=== PATIENT | female | born 1990 | race Caucasian/White ===

== ENCOUNTER 2022-02-10 15:21 | Emergency (ER) | payer SELFPAY ==
--- OUTSIDE RECORDS SUMMARY | 2022-02-10 15:25 | XMS REPORT | Continuity of Care Document ---
:1990 Author Organization [facility] t Address [address] [place] [address] Care Team Providers Name Role Phone MAYNOR LOONEY Attending Clinician Unavailable KNOW, DOES_NOT Admitting Clinician Unavailable Payers Payer Name Policy Type Policy Number Effective Date Expiration Date S ource Problems This patient has no known problems. Allergies, Adverse Reactions, Alerts Allergy Allergy Status Severity Reaction(s) Onset Inactive Treating Comm ents Source Name Type Date Date Clinician [place] DA Active SV [facility] ins 2-28 Clear 00:00: Delong 00 [facility] Penicill DA Active SV ANAPHYLAXIS [facility] ins 2-28 Clear 00:00: Delong [address] [place] [address] Penicill DA Active SV 2013-04 [facility] ins 0-15 Clear 00:00: Delong 00 [facility] Penicill DA Active SV ANAPHYLAXIS 2013-04 [facility] ins 0-15 Clear 00:00: Delong [address] [place] [address] Medications This patient has no known medications. Procedures This patient has no known procedures. Encounters Start End Encounter Admission Attending Care Care Encounter Source Date/Time Date/Time Type Type Clinicians Facility Department ID 2020-08-23 Outpatient [facility] [id number] [place] 03:46:15 [facility] 2019-06-15 Inpatient [facility] [id number] [facility] 17:42:00 01 [facility] Results Test Description Test Time Test Comments Results Result Comments Source DRUGS OF ABUSE SCREEN UR 2019-06-15 19:19:00 Test Item Value Reference Range Interpretation Comme nts URN COCAINE (test code = COCAURN) NEGATIVE NEGATIVE URN CANNABINOIDS (test code = POSITIVE NEGATIVE A CANNABURN) URN AMPHETAMINE (test code = POSITIVE NEGATIVE A AMPHETURN) URN BARBITURATE (test code = NEGATIVE NEGATIVE BARBITURN) URN BENZODIAZEPINE (test code = POSITIVE NEGATIVE A Cut-off value:200 ng/mL BENZOURN) URN OPIATES (test code = NEGATIVE NEGATIVE Cut -off value:2000 ng/mL OPIATURN) URN PHENCYCLIDINE (PCP) (test NEGATIVE NEGATIVE Cutoffs:Barbiturates 200 code = PHENCURN) ng/mLBenzod iazepines 200 ng/mLTHC Cannab inoids 50 ng/mLOpiates(Mo rphine) 2000 ng/mLAmphetamin e 1000 ng/mLCocaine 30 0 ng/mLPCP phencyclidine 2 5 ng/mL Unconfirmed scr eening results shouldnot be us ed for non-medical pur poses. BASIC METABOLIC [id number] 19:13:00 Test Item Value Reference Range Interpretation Comments SODIUM (test code = NA) 139 mEq/L 134-147 N POTASSIUM (test code = 3.1 mEq/L 3.4-5.0 L K) CHLORIDE (test code = 105 mEq/L 100-108 N CL) CARBON DIOXIDE (test 26 mEq/L 21-33 N code = CO2) ANION GAP (test code = 11 0-20 N GAP) GLUCOSE (test code = 93 mg/dL 70-110 N GLU) BLOOD UREA NITROGEN 19 mg/dL 7-18 H (test code = BUN) GLOMERULAR FILTRATION 84.8 110-120 L Units of measure = RATE (test code = GFR) ml/mi n/1.73 m2 CREATININE (test code = 0.8 mg/dL 0.6-1.3 N CREAT) CALCIUM (test code = 9.2 mg/dL 8.0-10.5 N CA) HEPATIC FUNCTION [id number] 19:13:00 Test Item Value Reference Range Interpretation Comments TOTAL PROTEIN (test code = PROT) 7.7 g/dL 6.4-8.2 N ALBUMIN (test code = ALB) 4.70 g/dL 3.4-5.0 N BILIRUBIN TOTAL (test code = BILT) 1.3 MG/DL <1.5 N BILIRUBIN DIRECT (test code = 0.30 MG/DL 0.0-0.30 N BILD) BILIRUBIN INDIRECT (test code = 1.00 MG/DL BILIND) SGOT/AST (test code = AST) 30 IUnit/L 15-37 N SGPT/ALT (test code = ALT) 28 IUnit/L 15-65 N ALKALINE PHOSPHATASE TOTAL (test 46 IUnit/L 20-125 N code = ALKP) HCG SERUM [id number] 19:13:00 Test Item Value Reference Range Interpretation Comments HCG SERUM QUAL (test code = SERUM NEGATIVE NEGATIVE HCGQL) [id number] 19:13:00 Test Item Value Reference Range Interpretation Comments ACETAMINOPHEN (test code = ACET) < 2 ug/mL 10-30 L [id number] 19:13:00 Test Item Value Reference Range Interpretation Comments SALICYLATE (test code = MARICARMEN) < 1.7 mg/dL 2.8-20.0 L [id number] 19:13:00 Test Item Value Reference Range Interpretation Comments ALCOHOL (test code < 0.003 G/dL <0.003 Ethyl Alc ohol = ALC) Interpretation: 0.100 gm/dL - Legally Intoxicated 0.3 00-0.400 gm/dL - Severel y Intoxicated >0. 400 gm/dL - Potenti ally LethalResults a re for Medical purpose s only, and not for Leg al orEmployment ev aluation purposes. BASIC METABOLIC [id number] 19:09:00 Test Item Value Reference Range Interpretation Comments SODIUM (test code = NA) 139 mEq/L 134-147 N POTASSIUM (test code = K) 3.1 mEq/L 3.4-5.0 L CHLORIDE (test code = CL) 105 mEq/L 100-108 N CARBON DIOXIDE (test code = CO2) 26 mEq/L 21-33 N ANION GAP (test code = GAP) 11 0-20 N GLUCOSE (test code = GLU) 93 mg/dL 70-110 N BLOOD UREA NITROGEN (test code = 19 mg/dL 7-18 H BUN) GLOMERULAR FILTRATION RATE (test 110-120 code = GFR) CREATININE (test code = CREAT) mg/dL 0.6-1.3 CALCIUM (test code = CA) 9.2 mg/dL 8.0-10.5 N HEPATIC FUNCTION [id number] 19:09:00 Test Item Value Reference Range Interpretation Comments TOTAL PROTEIN (test code = PROT) g/dL 6.4-8.2 ALBUMIN (test code = ALB) g/dL 3.4-5.0 BILIRUBIN TOTAL (test code = BILT) MG/DL <1.5 BILIRUBIN DIRECT (test code = BILD) MG/DL 0.0-0.30 SGOT/AST (test code = AST) IUnit/L 15-37 SGPT/ALT (test code = ALT) IUnit/L 15-65 ALKALINE PHOSPHATASE TOTAL (test IUnit/L 20-125 code = ALKP) HCG SERUM [id number] 19:09:00 Test Item Value Reference Range Interpretation Comments HCG SERUM QUAL (test code = SERUM NEGATIVE NEGATIVE HCGQL) [id number] 19:09:00 Test Item Value Reference Range Interpretation Comments ACETAMINOPHEN (test code = ACET) ug/mL 10-30 [id number] 19:09:00 Test Item Value Reference Range Interpretation Comments SALICYLATE (test code = MARICARMEN) mg/dL 2.8-20.0 [id number] 19:09:00 Test Item Value Reference Range Interpretation Comments ALCOHOL (test code = ALC) G/dL <0.003 DRUGS OF ABUSE SCREEN [id number] 19:09:00 Test Item Value Reference Range Interpretation Comments URN COCAINE (test code NEGATIVE NEGATIVE = COCAURN) URN CANNABINOIDS (test NEGATIVE code = CANNABURN) URN AMPHETAMINE (test NEGATIVE code = AMPHETURN) URN BARBITURATE (test NEGATIVE NEGATIVE code = BARBITURN) URN BENZODIAZEPINE NEGATIVE (test code = BENZOURN) URN OPIATES (test code NEGATIVE NEGATIVE Cut-o ff value:2000 = OPIATURN) ng/mL URN PHENCYCLIDINE (PCP) NEGATIVE NEGATIVE Cuto ffs:Barbiturates (test code = PHENCURN) 200 ng/mLBenzodiaze pines 200 ng/mLTHC Cannabinoids 50 ng/mLOpiates(Mo rphine) 2000 ng/mLAmphe tamine 1000 ng/mLCocai ne 300 ng/mLPCP phency clidine 25 ng/mL Unconf irmed screening resul ts shouldnot be us ed for non-medical pur poses. CBC W/O [id number] 19:04:00 Test Item Value Reference Range Interpretation Comments WHITE BLOOD CELL (test code = 5.38 x10 3/uL 4.5-11.0 N WBC) RED BLOOD CELL (test code = 4.59 x10 6/uL 3.54-5.02 N RBC) HEMOGLOBIN (test code = HGB) 13.2 g/dL 11.0-15.0 N HEMATOCRIT (test code = HCT) 40.2 % 33.0-45.0 N MEAN CELL VOLUME (test code = 87.6 fL 81.0-99.0 N MCV) MEAN CELL HGB (test code = MCH) 28.8 pg 27.0-33.0 N MEAN CELL HGB CONCETRATION 32.8 g/dL 33.0-37.0 L (test code = MCHC) RED CELL DISTRIBUTION WIDTH CV 12.8 % 11.5-14.5 N (test code = RDW) RED CELL DISTRIBUTION WIDTH SD 41.1 fL 37.0-54.0 N (test code = RDW-SD) PLATELET COUNT (test code = 138 x10 3/uL 150-400 L PLT) MEAN PLATELET VOLUME (test code 11.8 fL 7.0-9.0 H = MPV) BASIC METABOLIC [id number] 19:01:00 Test Item Value Reference Range Interpretation Comments SODIUM (test code = NA) mEq/L 134-147 POTASSIUM (test code = K) mEq/L 3.4-5.0 CHLORIDE (test code = CL) mEq/L 100-108 CARBON DIOXIDE (test code = CO2) mEq/L 21-33 ANION GAP (test code = GAP) 0-20 GLUCOSE (test code = GLU) mg/dL 70-110 BLOOD UREA NITROGEN (test code = BUN) mg/dL 7-18 GLOMERULAR FILTRATION RATE (test code 110-120 = GFR) CREATININE (test code = CREAT) mg/dL 0.6-1.3 CALCIUM (test code = CA) mg/dL 8.0-10.5 HEPATIC FUNCTION [id number] 19:01:00 Test Item Value Reference Range Interpretation Comments TOTAL PROTEIN (test code = PROT) g/dL 6.4-8.2 ALBUMIN (test code = ALB) g/dL 3.4-5.0 BILIRUBIN TOTAL (test code = BILT) MG/DL <1.5 BILIRUBIN DIRECT (test code = BILD) MG/DL 0.0-0.30 SGOT/AST (test code = AST) IUnit/L 15-37 SGPT/ALT (test code = ALT) IUnit/L 15-65 ALKALINE PHOSPHATASE TOTAL (test IUnit/L 20-125 code = ALKP) HCG SERUM [id number] 19:01:00 Test Item Value Reference Range Interpretation Comments HCG SERUM QUAL (test code = SERUM NEGATIVE NEGATIVE HCGQL) [id number] 19:01:00 Test Item Value Reference Range Interpretation Comments ACETAMINOPHEN (test code = ACET) ug/mL 10-30 [id number] 19:01:00 Test Item Value Reference Range Interpretation Comments SALICYLATE (test code = MARICARMEN) mg/dL 2.8-20.0 [id number] 19:01:00 Test Item Value Reference Range Interpretation Comments ALCOHOL (test code = ALC) G/dL <0.003
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
[2022-02-10 17:29] VITALS: TEMP 97.7
[2022-02-10 17:30] VITALS: BP 116/88; O2SAT 100
--- NOTE | 2022-02-11 14:32 | EKG ---
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
== END 2022-02-10 16:37 | disposition home or self-care (01) ==
LOC: ER 15:21
DX: F41.1 Generalized anxiety disorder (principal); Z88.0 Allergy status to penicillin
CPT/HCPCS: 93005; 99284